=== PATIENT | female | born 1940 | race Hispanic/Latino ===

== ENCOUNTER 2018-01-06 07:28 | Day surgery (SDC) | payer MEDICARE ==
[2018-01-06] MEDS ORDERED: NACL 0.9% 500 ML 500 ML IV SCH (08:00)
[2018-01-06] MEDS ORDERED: NEO SYNEPHRINE/NS Syringe(OR USE) IV ONE (10:25)
[2018-01-06] MEDS ORDERED: ATROPINE 0.1% (CARDIAC) ONE (10:25)
[2018-01-06] MEDS ORDERED: ADRENALIN ONE (10:25)
[2018-01-06] MEDS ORDERED: XYLOCAINE CARDIAC IV ONE (10:25)
[2018-01-06] MEDS ORDERED: NITROSTAT SL ONE (10:26)
[2018-01-06 12:20] VITALS: BP 133/48
--- NOTE | 2018-01-06 12:32 | Short Stay Summary ---
Short Stay Documentation Date of service: 01/06/18 - History H&P: obtained from office - Allergies and Medications Current Medications: Allergies No Known Allergies Allergy (Unverified 01/06/18 07:29) Home Medications Medication Instructions Recorded Confirmed Last Taken Type Atorvastatin Calcium 80 mg PO QHS 01/06/18 01/06/18 01/05/18 History Escitalopram Oxalate [Lexapro] 20 mg PO DAILY 01/06/18 01/06/18 01/05/18 History Fludrocortisone [Florinef] 0.1 mg PO DAILY 01/06/18 01/06/18 01/05/18 History Midodrine [Proamatine] 5 mg PO TID 01/06/18 01/06/18 01/05/18 History Primidone [Mysoline] 50 mg PO BID 01/06/18 01/06/18 01/05/18 History Active Medications Sodium Chloride (Nacl 0.9% 500 Ml) 500 mls @ 50 mls/hr IV DIRECT TAHIR Last Admin: 01/06/18 09:19 Dose: 50 mls/hr - Physical exam General appearance: no acute distress Integumentary: no rash HEENT: Atraumatic Lungs: Clear to auscultation Breasts: deferred Heart: Regular rate Gastrointestinal: normal Female Genitourinary: deferred Rectal Exam: deferred Extremities: no ischemia Neurological: Normal gait - Brief post op/procedure progress note Date of procedure: 01/06/18 Pre-op diagnosis: Syncope and Hypotension Post-op diagnosis: same Procedure: TTT Anesthesia: none Findings: Vasodepressor response Surgeon: TELMA MILES Estimated blood loss: none Pathology: none Condition: stable - Hospital course Hospital course: Uneventful - Disposition Condition at discharge: Good Disposition: DC-01 TO HOME OR SELFCARE Short Stay Discharge Plan Activity: advance as tolerated Weight Bearing Status: Weight Bear as Tolerated Diet: low fat, low cholesterol, low salt Follow up with: HEIDE FOX MD [Primary Care Provider] - 7 Days
--- NOTE | 2018-01-06 23:50 | Tilt Table Report ---
TILT TABLE TEST INDICATION: Recurrent syncope and orthostatic hypotension. DESCRIPTION OF PROCEDURE: After obtaining the consent, the patient was placed on the tilt table test. The patient's blood pressure prior to tilting was 167 beats over 84. The patient was tilted to 85 degrees from horizontal. One minute after tilting, the blood pressure was 159/83, blood pressure was 135/83 at 7 minutes and 30 seconds, and the blood pressure was 140/81 at 10 minutes. The patient was then given 0.4 mg of sublingual nitroglycerin. Two minutes after the nitroglycerin, the patient developed an episode of nonsustained atrial tachycardia. Then, her blood pressure was noted to significantly dropped to 76/46 at which time the patient started passing out. The patient was then tilted back to horizontal with gradual return of her blood pressure to 115/72 after aggressive IV hydration. The patient regained consciousness spontaneously. IMPRESSION: Significant vasodepressor response to nitroglycerin, suggesting a positive tilt table test with a drop in blood pressure from 140/81-76/46. There were no significant changes in the heart rate varying between 59-88 beats per minute. There was 1 episode of nonsustained atrial tachycardia. RECOMMENDATION: The patient will be recommended for further workup to rule out adrenal insufficiency. Subsequently, she will be started on either fludrocortisone or DDAVP. JOB# [id number] AIDE/SELENA
== END 2018-01-06 12:50 | disposition home or self-care (01) ==
LOC: CATHLABREC 07:28
PROVIDERS: ATTEND Internal Medicine
DX: I95.1 Orthostatic hypotension (principal); I10 Essential (primary) hypertension; F32.9 Major depressive disorder, single episode, unspecified; F41.9 Anxiety disorder, unspecified; Z79.899 Other long term (current) drug therapy; Z72.89 Other problems related to lifestyle; Z98.42 Cataract extraction status, left eye; Z98.41 Cataract extraction status, right eye; Z90.710 Acquired absence of both cervix and uterus; Z98.890 Other specified postprocedural states; Z87.891 Personal history of nicotine dependence
CPT/HCPCS: 93660; J7040; J0171; J0461; J2001; J2370